=== PATIENT | female | born 1965 | race African-American/Black ===

== ENCOUNTER 2023-01-05 21:14 | Emergency (ER) | payer MEDICAID, OTHER ==
[~2023-01-05] VITALS: Ht 154.9 cm; Wt 56.8 kg
[2023-01-05] MEDS ORDERED: KETOROLAC TROMETH 60MG/2ML VIAL IM ONE (23:30)
[2023-01-06 00:26] VITALS: BP 145/93
== END 2023-01-06 00:32 | disposition home or self-care (01) ==
LOC: ER 21:14
DX: M54.50 Low back pain, unspecified (principal); I11.0 Hypertensive heart disease with heart failure; I50.9 Heart failure, unspecified
CPT/HCPCS: 96372; 99283; J1885

== ENCOUNTER 2025-08-19 12:07 | Emergency (ER) | payer MEDICAID ==
[~2025-08-19] VITALS: Ht 170.2 cm; Wt 100.0 kg
--- NOTE | 2025-08-19 12:14 | ECG ---
[facility] Test Date: 2025-08-19 Test Time: 12:11:59 Pat Name: JOHN PAUL PALACIOS Department: [facility] ED Patient ID: [id number] Room: Gender: F Educational Advisor: SAEED : 1965 Requested By: ASHISH MARTINEZ Order Number: [id number] Reading MD: Harpreet Peraza Measurements Intervals [place] Rate: 73 P: 47 VA: 198 QRS: -9 QRSD: 95 T: 86 QT: 460 QTc: 507 Interpretive Statements Sinus rhythm Left ventricular hypertrophy Inferior infarct, acute (LCx) Anterior infarct, old Baseline wander in lead(s) V6 Electronically Signed On 08-19-2025 15:25:33 PDT by Harpreet Peraza Please click the below link to view image of tracing.
--- NOTE | 2025-08-19 12:24 | ED.PDOC ---
HPI Comments 60 y/o F, BIBA, with PMHx of HTN presents to the ED for CC of chest pain. EMS reports, patient is coming from home where she c/o substernal chest pain that radiates to her left-side and back sudden onset, [id number] following taking her hydralazine medication. Patient relays, chest pain to be "cramping" in nature. Patient denies shortness of breath, nausea, vomiting, or palpitations. Time Seen by MD: 12:00 Reviewed Notes: Nurses Notes, Medications, Allergies Allergies: Coded Allergies: NO KNOWN ALLERGIES (Unverified , 08/19/25) Information Source: Patient Mode of Arrival: EMS Severity: Moderate Timing: Minutes Duration: Since onset Prehospital treatment: None Location: Chest (L) Quality: Other (CRAMPING) Onset: At Rest Cardiac Risk Factors: HTN PE Risk Factors: None History of: None Modifying Factors: Nothing Associated Signs and Symptoms: None Past Medical History PAST MEDICAL HISTORY: CHF, HTN Surgical History: Denies all surgeries POSTAL CARRIER History: No Pertinent POSTAL CARRIER History Social History Smoker: Non-Smoker Alcohol: Denies ETOH Use Drugs: Marijuana Lives In: Home Constitutional: denies: chills, diaphoresis, fatigue, fever, malaise, sweats, weakness, others EENTM: denies: blurred vision, double vision, ear bleeding, ear discharge, ear drainage, ear pain, ear ringing, eye pain, eye redness, hearing loss, mouth pain, mouth swelling, nasal discharge, nose bleeding, nose congestion, nose pain, photophobia, tearing, throat pain, throat swelling, voice changes, others Respiratory: denies: cough, hemoptysis, orthopnea, SOB at rest, shortness of breath, SOB with excertion, stridor, wheezing, others Cardiovascular: reports: chest pain; denies: dizzy spells, diaphoresis, Dyspnea on exertion, edema, irregular heart beat, left arm pain, lightheadedness, palpitations, PND, syncope, others Gastrointestinal: reports: nausea; denies: abdomen distended, abdominal pain, blood streaked bowels, constipated, diarrhea, dysphagia, difficulty swallowing, hematemesis, melena, poor appetite, poor fluid intake, rectal bleeding, rectal pain, vomiting, others Genitourinary: denies: abnormal vagina bleeding, burning, dyspareunia, dysuria, flank pain, frequency, hematuria, incontinence, pain, , vagina discharge, urgency, others Neurological: denies: dizziness, fainting, headache, left sided numbness, left sided weakness, numbness, paresthesia, pre-existing deficit, right sided numbness, right sided weakness, seizure, speech problems, tingling, tremors, weakness, others Musculoskeletal: denies: back pain, gout, joint pain, joint swelling, muscle pain, muscle stiffness, neck pain, others Integumetry: denies: bruises, change in color, change in hair/nails, dryness, laceration, lesions, lumps, rash, wounds, others Allergic/Immunocompromised: denies: Difficulty Healing, Frequent Infections, Hives, Itching, others Hematologic/Lymphatic: denies: anemia, blood clots, easy bleeding, easy bruising, swollen glands, others Endocrine: denies: excessive hunger, excessive sweating, excessive thirst, excessive urination, flushing, intolerance to cold, intolerance to heat, u nexplained weight gain, unexplained weight loss, others Psychiatric: denies: anxiety, bipolar disorder, depression, hopeless, panic disorder, schizophrenia, sleepless, suicidal, others All Other Systems: Reviewed and Negative Physical Exam General Appearance: Moderate Distress HEENT: Normal ENT Inspection, Pharynx Normal, TMs Normal Neck: Full Range of Motion, Non-Tender, Normal, Normal Inspection Respiratory: Chest Non-Tender, Lungs Clear, No Accessory Muscle Use, No Respiratory Distress, Normal Breath Sounds Cardiovascular: No Edema, No JVD, No Murmur, No Gallop, Normal Peripheral Pulses, Regular Rate/Rhythm Breast Exam: Deferred Gastrointestinal: No Organomegaly, Non Tender, No Pulsatile Mass, Normal Bowel Sounds, Soft Genitalia: Deferred Pelvic: Deferred Rectal: Deferred Extremities: No calf tenderness, Normal capillary refill, No pedal edema Musculoskeletal : Apperance: Normal Neurologic: Alert, meeting specialist II-XII nml as Tested, No Motor Deficits, Normal Affect, Normal Mood, No Sensory Deficits Cerebellar Function: Normal Reflexes: Normal Skin: Dry, Normal Color, Warm Lymphatic: No Adenopathy EKG EKG : Pulse Rate (adult): 80 [place]: Normal Cardiac Rhythm: NSR Block: None ST: Nonsp Was a procedure done? Was a procedure done?: No CP Differential Dx Differential Diagnosis: Angina Differential Diagnosis: HTN Essential, HTN Accelerated Differential Diagnosis: Chest Wall Pain, Costochondritis X-Ray, Labs, Meds, VS Vital Signs Date Time Temp Pulse Resp B/P (MAP) Pulse Ox O2 Delivery O2 Flow Rate FiO2 08/19/25 13:49 98.4 82 16 154/81 (105) 96 98.4 08/19/25 12:21 98.2 82 17 106/63 96 98.2 08/19/25 12:11 73 Lab Test 08/19/25 13:35 08/19/25 12:28 Range/Units Troponin I High Sensitivity Pending 16 </=34 ng/L White Blood Count 9.6 4.4-10.8 10^3/uL Red Blood Count 6.20 H 4.0-5.20 10^6/uL Hemoglobin 12.5 12.2-16.2 g/dL Hematocrit 42.0 36.0-46.0 % Mean Corpuscular Volume 67.7 L 80.0-100.0 fL Mean Corpuscular Hemoglobin 20.2 L 28.0-32.0 pg Mean Corpuscular Hemoglobin Concent 29.9 L 32.0-36.0 g/dL Red Cell Distribution Width 19.4 H 11.8-14.3 % Platelet Count 220 140-450 10^3/uL Mean Platelet Volume 8.5 6.9-10.8 fL Neutrophils (%) (Auto) 64.9 37.0-80.0 % Lymphocytes (%) (Auto) 20.3 10.0-50.0 % Monocytes (%) (Auto) 8.8 0.0-12.0 % Eosinophils (%) (Auto) 5.2 0.0-7.0 % Basophils (%) (Auto) 0.8 0.0-2.0 % Neutrophils # (Auto) 6.2 1.6-8.6 10 ^3/uL Lymphocytes # (Auto) 1.9 0.4-5.4 10 ^3/uL Monocytes # (Auto) 0.8 0-1.3 10 ^3/uL Eosinophils # (Auto) 0.5 0-0.8 10 ^3/uL Basophils # (Auto) 0.1 0-0.2 10 ^3/uL Nucleated Red Blood Cells 0.2 % Sodium Level 143 136-145 mmol/L Potassium Level 4.2 3.5-5.1 mmol/L Chloride Level 108 H 98-107 mmol/L Carbon Dioxide Level 22 20-31 mmol/L Anion Gap 13 5-15 Blood Urea Nitrogen 35 H 9-23 mg/dL Creatinine 1.86 H 0.550-1.02 mg/dL Glomerular Filtration Rate Calc 31 >90 mL/min BUN/Creatinine Ratio 18.8 10.0-20.0 Serum Glucose 103 74-106 mg/dL Calcium Level 9.1 8.7-10.4 mg/dL B-Type Natriuretic Peptide 151.33 0-100 pg/mL Current Medications Medications (Trade) Dose Ordered Sig/Rosa Route Start Time Stop Time Status Last Admin Aspirin 162 mg ONCE ONCE PO 08/19/25 12:15 08/19/25 12:17 DC 08/19/25 13:00 Acetaminophen/ Hydrocodone Bitart ([place] 10/325MG Tab) 1 tab ONCE ONCE PO 08/19/25 13:15 08/19/25 13:16 DC 08/19/25 13:21 CXR: IMPRESSION: Mild cardiomegaly with pulmonary vascular congestion and left mid to lower lung zone linear atelectasis. THE PATIENT WAS BEING GIVEN LASIX 40 MG IV PUSH FOR THE CHEST PAIN, THE PATIENT IS GIVEN NORCO P.O.. THE BNP IS WITHIN NORMAL LIMITS THE BUN IS 35 AND THE CREATININE IS 1.86 THE PATIENT'S CBC IS WITHIN NORMAL LIMITS. THE 1ST TROPONIN LEVEL CAME BACK NEGATIVE. THE 2ND TROPONIN LEVEL IS PENDING The patient will be admitted to the hospitalist at this time The diagnosis acute on chronic diastolic heart failure as well as acute chest pain Images Reviewed?: Images reviewed and evaluated by me Time of 1ST Reevaluation: 12:30 Reevaluation 1ST: Unchanged Patient Education/Counseling: Diagnosis, Treatment, Prognosis Family Education/Counseling: No Family Present SEPSIS Sepsis Screen Physician Orders Troponin-I Hs (08/19/25 13:12) Troponin-I Hs (08/19/25 15:12) Electrocardigram (08/19/25 13:12) Electrocardigram (08/19/25 15:12) Chest Portable (08/19/25 12:14) Heplock Iv (08/19/25 12:14) Bail Bond Agent (08/19/25 12:14) Blood Pressure (08/19/25 12:14) Pulse Oximetry (08/19/25 12:14) Urinalysis (08/19/25 12:14) Vital Signs Date Time Temp Pulse Resp B/P (MAP) Pulse Ox O2 Delivery O2 Flow Rate FiO2 08/19/25 13:49 98.4 82 16 154/81 (105) 96 98.4 08/19/25 12:21 98.2 82 17 106/63 96 98.2 08/19/25 12:11 73 Laboratory Tests Test 08/19/25 12:28 White Blood Count 9.6 10^3/uL (4.4-10.8) Medications Medications Dose Ordered Sig/Rosa Route Start Time Stop Time Status Last Admin Dose Admin Acetaminophen/ Hydrocodone Bitart 1 tab ONCE ONCE PO 08/19/25 13:15 08/19/25 13:16 DC 08/19/25 13:21 Aspirin 162 mg ONCE ONCE PO 08/19/25 12:15 08/19/25 12:17 DC 08/19/25 13:00 Departure 1 Departure Time of Disposition: 14:02 Impression: Primary Impression: Acute chest pain Additional Impression: Acute on chronic diastolic heart failure Disposition: 09 ADMITTED INPATIENT Admit to: Tele Condition: Fair Critical Care Note Critical Care Time?: No Stability Stability form required: Yes Unstable for transfer: Telemetry monitoring (Telemetry monitoring required), ED Physician Assesment (Clinical assesment) Heart Score Heart Score: Heart Score Response (Comments) Value History N/A 0 EKG N/A 0 Age N/A 0 Risk Factors N/A 0 Troponin N/A 0 Total 0 I personally scribed for ASHISH MARTINEZ MD ([email or web address]) on 08/19/25 at 12:24. Electronically submitted by Ynes Agustin ([email or web address]). I personally scribed for ASHISH MARTINEZ MD ([email or web address]) on 08/19/25 at 12:25. Electronically submitted by Ynes Agustin ([email or web address]). I personally scribed for ASHISH MARTINEZ MD ([email or web address]) on 08/19/25 at 13:47. Electronically submitted by Ynes Agustin ([email or web address]). ASHISH MARTINEZ MD Aug 19, 2025 12:24
[2025-08-19 13:00] LABS: Mean Corpuscular Volume 67.7 fL (80.0-100.0)
[2025-08-19 13:04] LABS: Anion Gap 13 (5-15); Carbon Dioxide 22 mmol/L (20-31); Potassium 4.2 mmol/L (3.5-5.1); Sodium 143 mmol/L (136-145)
[2025-08-19 13:05] LABS: Calcium 9.1 mg/dL (8.7-10.4)
[2025-08-19 13:07] LABS: Chloride 108 mmol/L (98-107)
[2025-08-19 13:10] LABS: BUN/Creatinine Ratio 18.8 (10.0-20.0); Glucose 103 mg/dL (74-106)
[2025-08-19 13:11] LABS: Hematocrit 42.0 % (36.0-46.0); Hemoglobin 12.5 g/dL (12.2-16.2); Mean Corpuscular Hemoglobin 20.2 pg (28.0-32.0); Nucleated Red Blood Cells % 0.2 %
[2025-08-19 13:12] LABS: Blood Urea Nitrogen 35 mg/dL (9-23)
--- NOTE | 2025-08-19 13:17 | DVH ---
CHEST RADIOGRAPH Indication: cp Technique: Single frontal view of the chest was obtained Comparison: None FINDINGS: Lines and Tubes: None Lungs: No focal consolidation. Mild interstitial prominence. Linear density of the left mid to lower lung zone Pleura: No effusion. No pneumothorax. Cardiomediastinal contours: Mild cardiomegaly Bones: No acute osseous abnormality. IMPRESSION: Mild cardiomegaly with pulmonary vascular congestion and left mid to lower lung zone linear atelectas is.
[2025-08-19] MEDS: HYDROcodone-ACET 10/325MG TAB PO ONE (13:21)
[2025-08-19 13:49] VITALS: BP 154/81; RESP 16; TEMP 98.4; O2SAT 96
[2025-08-19] MEDS ORDERED: FUROSEMIDE 40 MG/4 ML VIAL IV ONE (14:00)
[2025-08-19 14:02] VITALS: PULSE 80
--- NOTE | 2025-08-20 08:56 | ECG ---
[facility] Test Date: 2025-08-19 Test Time: 12:11:20 Pat Name: JOHN PAUL PALACIOS Department: [facility] ED Patient ID: [facility]-[id number] Room: Gender: F Nurse Liaison: SAEED : 1965 Requested By: ASHISH MARTINEZ Order Number: [id number] Reading MD: Harpreet Peraza Measurements Intervals [place] Rate: 73 P: 52 FL: 204 QRS: 2 QRSD: 91 T: 91 QT: 445 QTc: 491 Interpretive Statements Sinus rhythm Borderline prolonged FL interval Probable left atrial enlargement LVH with secondary repolarization abnormality Inferior infarct, acute (RCA) Anterior infarct, old Probable RV involvement, suggest recording right precordial leads Electronically Signed On 08-20-2025 9:05:39 PDT by Harpreet Peraza Please click the below link to view image of tracing.
== END 2025-08-19 14:05 | disposition left against medical advice (07) ==
LOC: ER 12:07 → EDBD 12:07 → ER 14:05
DX: I11.0 Hypertensive heart disease with heart failure (principal); I50.33 Acute on chronic diastolic (congestive) heart failure
CPT/HCPCS: 36415; 71045; 80048; 83880; 84484; 85025; 93005